=== PATIENT | female | born 1945 | race Two or more races ===

== ENCOUNTER 2017-08-30 09:50 | Outpatient (CLI) | payer OTHER ==
[~2017-08-30 09:50] MED LIST: ATENOLOL50 MG PO; DEXAMETHASONE4 MG PO; LEVAQUIN750 MG PO; METHOTREXATE2.5 MG; SEPTRA DS TABLE1 TAB PO; XARELTO20 MG PO
[2017-08-30] MEDS ORDERED: NEURONTIN600 MG (12:17)
[2017-08-30] MEDS ORDERED: LASIX20 MG (12:19)
== END 2017-08-30 09:51 | disposition home or self-care (01) ==
LOC: LAB 09:50
DX: N39.0 Urinary tract infection, site not specified (principal); R82.79 Other abnormal findings on microbiological examination of urine

== ENCOUNTER 2018-07-25 10:02 | Outpatient (CLI) | payer OTHER ==
[~2018-07-25 10:02] MED LIST changes: +LASIX20 MG; +NEURONTIN600 MG
== END 2018-07-25 10:07 | disposition home or self-care (01) ==
LOC: RAD 501 10:02
DX: I11.9 Hypertensive heart disease without heart failure (principal); R06.02 Shortness of breath

== ENCOUNTER → 2018-10-19 12:00 | Outpatient (CLI) | payer OTHER | END | disposition home or self-care (01) | LOC: LAB 12:00 | DX: N39.0 Urinary tract infection, site not specified (principal); B96.1 Klebsiella pneumoniae [K. pneumoniae] as the cause of diseases classified elsewhere ==

== ENCOUNTER 2018-10-31 11:11 | Outpatient (CLI) | payer OTHER | END 2018-10-31 11:22 | disposition home or self-care (01) | LOC: RAD 501 11:11 | DX: M06.09 Rheumatoid arthritis without rheumatoid factor, multiple sites (principal) ==

== ENCOUNTER 2018-12-06 10:41 | Outpatient (CLI) | payer OTHER | END 2018-12-06 10:45 | disposition home or self-care (01) | LOC: SONOGRAMA 10:41 | DX: N39.0 Urinary tract infection, site not specified (principal); R31.1 Benign essential microscopic hematuria ==